=== PATIENT | female | born 1970 | race Two or more races ===

== ENCOUNTER → 2022-11-02 | Emergency (ER) | payer OTHER ==
[~2022-11-02] VITALS: Ht 160 cm; Wt 61.2 kg
[~2022-11-02] MED LIST: DOLOGEN CAPLET1 EACH PO; OSEL75CA PO; PEPCID AC20 MG PO; TUSNEL LIQUID178 ML PO
== END | disposition home or self-care (01) ==
LOC: ER 17:25
DX: J10.1 Influenza due to other identified influenza virus with other respiratory manifestations (principal); B34.9 Viral infection, unspecified; Z20.822 Contact with and (suspected) exposure to COVID-19